=== PATIENT | female | born 1990 | race Caucasian/White ===

== ENCOUNTER 2016-11-06 22:51 | Emergency (ER) | payer OTHER ==
[2016-11-07 00:20] VITALS: BP 141/83
== END 2016-11-07 00:21 | disposition home or self-care (01) ==
LOC: ED 22:51
DX: J01.90 Acute sinusitis, unspecified (principal); J30.9 Allergic rhinitis, unspecified; R10.13 Epigastric pain; Z79.899 Other long term (current) drug therapy